=== PATIENT | female | born 1940 | race Caucasian/White ===

== ENCOUNTER 2019-05-31 17:11 | Inpatient (IN) | payer MEDICARE ==
[~2019-05-31] VITALS: Ht 165.1 cm; Wt 113.4 kg
[2019-05-31 18:08] LABS: BASOPHILS # (AUTO) 0.1 (0.0-0.1); BASOPHILS % 0.9 % (0.0-1.0); EOSINOPHILS # (AUTO) 0.2 (0.0-0.4); EOSINOPHILS % 2.3 % (0.0-6.0); HEMATOCRIT 37.6 % (34.2-44.1); HEMOGLOBIN 12.1 g/dL (12.0-16.0); LYMPHOCYTES # (AUTO) 1.8 (1.0-3.2); MEAN CORPUSCULAR HEMOGLOBIN 28.3 pg (28-32); MEAN CORPUSCULAR HGB CONC 32.2 g/dL (31-35); MEAN CORPUSCULAR VOLUME 87.9 fL (81-99); MONOCYTES # (AUTO) 0.8 (0.2-0.8); MONOCYTES % 8.8 % (4.4-11.3); NEUTROPHILS # (AUTO) 5.9 (2.1-6.9); NEUTROPHILS % 66.8 % (38.7-80.0); PLATELET COUNT 330 x10e3/uL (140-360); RED BLOOD COUNT 4.28 x10e6/uL (3.6-5.1); RED CELL DISTRIBUTION WIDTH 15.7 % (11.7-14.4)
[2019-05-31 18:27] LABS: ALANINE AMINOTRANSFERASE 9 IU/L (0-55); ALBUMIN 3.5 g/dL (3.5-5.0); ALKALINE PHOSPHATASE 108 IU/L (40-150); ANION GAP 11.9 mmol/L (8-16); BLOOD UREA NITROGEN 10 mg/dL (7-26); BUN/CREATININE RATIO 16 (6-25); CARBON DIOXIDE 29 mmol/L (22-29); CHLORIDE 100 mmol/L (98-107); CREATININE, SERUM 0.62 mg/dL (0.57-1.11); EST GLOMERULAR FILTRATION RATE > 60 ML/MIN (60-); GLUCOSE 106 mg/dL (74-118); POTASSIUM 3.9 mmol/L (3.5-5.1); SODIUM 137 mmol/L (136-145)
[2019-05-31 18:46] LABS: INR 2.66; PROTHROMBIN TIME 30.4 seconds (11.9-14.5)
[2019-05-31 18:47] LABS: PARTIAL THROMBOPLASTIN TIME 54.1 seconds (23.8-35.5)
[2019-05-31 18:55] LABS: CREATINE KINASE MB 0.9 ng/mL (0-5.0)
[2019-05-31 19:13] LABS: CHOL/HDL RATIO 2.1 (3.0-3.6)
[2019-05-31 19:33] LABS: THYROID STIMULATING HORMONE 2.382 uIU/mL (0.350-4.940)
--- NOTE | 2019-05-31 19:36 | Diagnostic Imaging Report ---
EXAMINATION: CHEST SINGLE (PORTABLE) INDICATION: ^decompensated chf ^[id number] ^1830 COMPARISON: None FINDINGS: AP view TUBES and LINES: None. LUNGS: Lungs are well inflated. Bilateral interstitial edema. Airspace opacity in the right lower lobe may reflect edema or overlying infection. No lobar consolidations. PLEURA: No pleural effusion or pneumothorax. HEART AND MEDIASTINUM: Severe enlargement of the cardiac silhouette due to cardiomegaly and/or superimposed pericardial effusion. Enlarged pulmonary arteries consistent with pulmonary hypertension. Moderate calcifications of the aortic arch. BONES AND SOFT TISSUES: No acute osseous lesion. Soft tissues are unremarkable. UPPER ABDOMEN: No free air under the diaphragm. IMPRESSION: Cardiomegaly with associated bilateral interstitial edema. Cannot exclude pericardial effusion. More conspicuous airspace opacity in the right lower lobe may represent superimposed infection. Continue to follow-up. Signed by: Dr. Gavi Desir M.D. on 05/31/2019 7:33 PM
--- OUTSIDE RECORDS SUMMARY | 2019-05-31 19:43 | XMS REPORT ---
Author [facility] Address Unknown Phone Unavailable Care Team Providers Care Crime Data Specialist Name Role Phone RIZWANA KNUTSON Unavailable Unavailable Payers Payer Name Policy Type Policy Number Effective Date Expiration Date Problems This patient has no known problems. Allergies, Adverse Reactions, Alerts Allergy Name Allergy Type Status Severity Reaction(s) Onset Date Inactive Date Treating Clinician Comments No Known Allergies DA Active U 2013-07-30 00:00:00 Medications This patient has no known medications. Results Test Description Test Time Test Comments Text Results Atomic Results Result Comments CHEST SINGLE (PORTABLE) 2019-05-31 19:32:00 [facility] [address], [place] [address] Patient Name: KALYANI GANT MR #: [id number] : 1940 Age/Sex: 78/F Req #: [id number] Adm Physician: Ordered by: KAIDEN SCHILLING MD Report #: [id number] Location: ER Room/Bed: Procedure: [id number] DX/CHEST SINGLE (PORTABLE) Exam Date: 05/31/19 Exam Time: 1830 REPORT STATUS: Signed EXAMINATION: CHEST SINGLE (PORTABLE) INDIC ATION: decompensated chf [id number] COMPARISON: None FINDINGS: AP view TUBES and LINES: None. LUNGS: Lungs are well inflated. Bilateral interstitial edema. Airspace opacity in the right lower lobe may reflect edema or overlying infection. No lobar consolidations. PLEURA: No pleural effusion or pneumothorax. HEART AND MEDIASTINUM: Severe enlargement of the cardiac silhouette due to cardiomegaly and/or superimposed pericardial effusion. Enlarged pulmonary arteries consistent with pulmonary hypertension. Moderate calcifications of the aortic arch. BONES AND SOFT TISSUES: No acute osseous lesion. Soft tissues are unremarkable. UPPER ABDOMEN: No free air under the diaphragm. IMPRESSION: Cardiomegaly with associated bilateral interstitial edema. Cannot exclude pericardial effusion. More conspicuous airspace opacity in the right lower lobe may represent superimposed infection. Continue to follow-up. Signed by: Dr. Gavi Desir M.D. on 05/31/2019 7:33 PM Dictated By: GAVI DESIR MD 32 Transcribed By: BALA on 05/31/191932 COPY TO: KAIDEN SCHILLING MD PROTHROMBIN TIME 2018-04-13 16:04:00 PROTHROMBIN TIME PATIENT (test code=PTP) 31.1 seconds 9.0-14.0 INTERNATIONAL NORMAL RATIO (test code=INR) 2.5 0.8-1.2 The therapeutic range for oral anticoagulant therapy formost indications is an international normalized ratio (INR)of between 2.0 and 3.0. The recommended therapeutic INRrange for various clinical situations is listed below: Clinical Situation INR range Pulmonary e mbolism treatment (2.0-3.0)Venous thrombosis treatmentVenous thrombosis prophylaxis (high risk surgery)Prevention of systemic embolism from: Acute myocardial infarction Valvular heart disease Atrial fibrillation Mechanical prosthetic heart valves (2.5-3.5) IS PATIENT ON ANTICOAGULANTS? NTHROMBOPLASTIN TIME [id number] 16:04:00* Test Item Value Reference Range Comments THROMBOPLASTIN TIME PARTIAL (test code=PTT) 44.6 seconds 25.0-36.5 IS PATIENT ON ANTICOAGULANTS? NBASIC METABOLIC [id number] 15:52:00* Test Item Value Reference Range Comments SODIUM (test code=NA) 141 mmol/L 136-145 POTASSIUM (test code=K) 3.5 mmol/L 3.5-5.1 CHLORIDE (test code=CL) 109.0 mmol/L 98-107 CARBON DIOXIDE (test code=CO2) 24.0 mmol/L 21-32 ANION GAP (test code=GAP) 11.5 10-20 GLUCOSE (test code=GLU) 100 mg/dL 74-106 BLOOD UREA NITROGEN (test code=BUN) 12 mg/dL 7-18 GLOMERULAR FILTRATION RATE (test code=GFR) > 60 mL/min >=60 Estimated GFR by using Modified MDRD formula.Chronic kidney disease is defined as either kidney damageor GFR <60 mL/min/1.73 m2 for >3 months. CREATININE (test code=CREAT) 0.60 mg/dL 0.55-1.02 Note change in reference range due to change in reagent. BUN/CREATININE RATIO (test code=BUN/CREA) 21.8 10-20 CALCIUM (test code=CA) 8.9 mg/dL 8.5-10.1 BASIC METABOLIC [id number] 15:47:00* Test Item Value Reference Range Comments SODIUM (test code=NA) 141 mmol/L 136-145 POTASSIUM (test code=K) 3.5 mmol/L 3.5-5.1 CHLORIDE (test code=CL) 109.0 mmol/L 98-107 CARBON DIOXIDE (test code=CO2) mmol/L 21-32 ANION GAP (test code=GAP) 10-20 GLUCOSE (test code=GLU) mg/dL 74-106 BLOOD UREA NITROGEN (test code=BUN) mg/dL 7-18 GLOMERULAR FILTRATION RATE (test code=GFR) mL/min >=60 CREATININE (test code=CREAT) mg/dL 0.55-1.02 BUN/CREATININE RATIO (test code=BUN/CREA) 10-20 CALCIUM (test code=CA) 8.9 mg/dL 8.5-10.1 CBC W/O [id number] 15:36:00* Test Item Value Reference Range Comments WHITE BLOOD CELL (test code=WBC) 9.6 K/mm3 4.5-12.5 RED BLOOD CELL (test code=RBC) 4.81 mill/mm3 3.7-5.2 HEMOGLOBIN (test code=HGB) 13.2 gram/dL 11.5-15.5 HEMATOCRIT (test code=HCT) 43.1 % 36.0-46.0 MEAN CELL VOLUME (test code=MCV) 89.6 fL 80-98 MEAN CELL HGB (test code=MCH) 27.4 picogram 27.0-33.0 MEAN CELL HGB CONCETRATION (test code=MCHC) 30.6 gram/dL 33.0-36.0 RED CELL DISTRIBUTION WIDTH (test code=RDW) 15.9 % 11.6-16.2 PLATELET COUNT (test code=PLT) 316 K/mm3 150-450 MEAN PLATELET VOLUME (test code=MPV) 10.5 fL 6.7-11.0 CBC W/O [id number] 15:31:00* Test Item Value Reference Range Comments WHITE BLOOD CELL (test code=WBC) K/mm3 4.5-12.5 RED BLOOD CELL (test code=RBC) mill/mm3 3.7-5.2 HEMOGLOBIN (test code=HGB) 13.2 gram/dL 11.5-15.5 HEMATOCRIT (test code=HCT) 43.1 % 36.0-46.0 MEAN CELL VOLUME (test code=MCV) fL 80-98 MEAN CELL HGB (test code=MCH) picogram 27.0-33.0 MEAN CELL HGB CONCETRATION (test code=MCHC) gram/dL 33.0-36.0 RED CELL DISTRIBUTION WIDTH (test code=RDW) % 11.6-16.2 PLATELET COUNT (test code=PLT) K/mm3 150-450 MEAN PLATELET VOLUME (test code=MPV) fL 6.7-11.0 - XR T-SPINE 3 [id number] 15:02:00 FAX: Raz Nava MD [phone] [place]: [address] St: REG Name: KALYANI DAMIAN [facility] : [birth year] Age/S: 77/F Romel Kathleen [facility] Unit #: [id number] Loc: [place] [address] Phys: Raz Nava MD Acct: [id number] Dis Date: Status: REG ER PHONE #: [phone] Exam Date: 04/13/2018 1306 FAX #: [phone] Reason: BACK PAIN EXAMS: CPT CODE: [id number] XR T-SPINE 3 VIEWS 39114 HISTORY: BACK PAIN, trauma EXAM: AP, lateral, and swimmers views of the thoracic spine. FINDINGS: Mild dextroscoliosis. Vertebral body alignment is satisfactory. Vertebral body heights are preserved. Osteopenia. Moderate multilevel disc space loss with marginal osteophytes. No paraspinal soft tissue contour abnormality. Thoracic aortic vascular calcification. IMPR ESSION: No acute fracture or subluxation of the thoracic spine. Elec tronically Signed by Alicia Navas D.O. on 04/13/2018 at 1502 Reported and signed by: Alicia Navas D.O. CC: Raz Nava MD Technologist: RT KANE(R); Sunshine Mcmullen; ... Trnscrd Date/Time/By: 04/13/2018 (5238) : By: [email or web address] Orig Print D/T: S: 04/13/2018 (0296) PAGE 1 Signed Report - XR FEMUR MIN 2 VWS [id number] 15:02:00 FAX: Raz Nava MD [phone] [place]: St: REG Name: KALYANI DAMIAN [facility] : [birth year] Age/S: 77/F [address] Unit #: [id number] Loc: [place] [address] Phys: Raz Nava MD Acct: [id number] Dis Date: Status: REG ER PHONE #: [phone] Exam Date: 04/13/2018 1400 FAX #: [phone] Reason: THIGH PAIN EXAMS: CPT CODE: [id number] XR FEMUR MIN [address] [place] [address] CLINICAL HISTORY: THIGH PAIN; trauma TECHNIQUE: AP and lateral views of the left femur COMPARISON: None FINDINGS: No acute fracture or dis location. Bony trabecular pattern is unremarkable. No cortical destruction or periosteal reaction. Mild hip and severe degenerative arthrosis. Regio nal soft tissues are unremarkable. IMPRESSION: No acute fracture or dislocation of the left femur. E lectronically Signed by Alicia Navas D.O. on 04/13/2018 at 1502 Reported and signed by: Alicia Navas D.O. CC: Orestes Nava MD Technologist: ANGY GUERRERO, RT(R); Sunshine Mcmullen; ..Ana Trnscrd Date/Time/By: 04/13/2018 (1507) : By: [email or web address] Orig Print D/T: S: 04/13/2018 (0088) PAGE 1 Signed Report - XR L-SPINE 2/3 [id number] 15:01:00 FAX: Raz Nava MD [phone] [place]: St: REG Name: KALYANI DAMIAN [facility] : [birth year] Age/S: 77/F [address] [facility] Unit #: [id number] Loc: [place] [address] Phys: Raz Nava MD Acct: [id number] Dis Date: Status: REG ER PHONE #: [phone] Exam Date: 04/13/2018 1315 FAX #: [phone] Reason: BACK PAIN EXAMS: CPT CODE: [id number] XR L-SPINE 2/3 VIEWS 56653 HISTORY: BACK PAIN, trauma TECHNIQUE: AP, lateral, and lumbosacral views of the lumbar spine. FINDINGS: No acute fracture or subluxation. Vertebral body alignment is satisfactory. Vertebral body heights are preserved. Osteopenia. Severe disc space loss with endplate sclerosis and marginal osteophytes at L4-L5 and L5-S1. Mild disc space loss with marginal osteophytes at other lumbar levels. Lower lumbar facet arthrosis, most notable at L5-S1. No evident paraspinal soft tissue contour abnormality. Abdominal aortic vascular reed cification. IMPRESSION: No acute fracture or subluxation of the lumbar spine. at 150 Reported and signed by: Alicia Navas D.O. CC: Raz Nava MD Technologist: ANGY GUERRERO, RT(R); Sunshine Mcmullen; ..Ana Trnscrd Date/Time/By: 04/13/2018 (8055) : By: [email or web address] Orig Print D/T: S: 04/13/2018 (0504) PAGE 1 Signed Report - XR KNEE 3 V [id number] 15:00:00 FAX: Raz Nava MD [phone] [place]: [address]: REG Name: KALYANI DAMIAN [facility] : [birth year] Age/S: 77/F [address] Unit #: [id number] Loc: [place], [place] [address] Phys: Raz Nava MD Acct: [id number] Dis Date: Status: [facility] ER PHONE #: [phone] Exam Date: 04/13/2018 1420 FAX #: [phone] Reason: KNEE PAIN EXAMS: CPT CODE: [id number] XR KNEE 3 [place] [address] CLINICAL HISTORY: KNEE PAIN; trauma TECHNIQUE: AP, oblique, and lateral views of the bilateral knees COMPARISON: None FINDINGS: No acute f racture or dislocation. Bony trabecular pattern is unremarkable. No cortic al destruction or periosteal reaction. Severe bilateral knee degenerative arthrosis. No joint effusion. Regional soft tissues are unremarkable. IMPRESSION: No acute fracture or dislocati on of the bilateral knees. Electronically Signed by Alicia ann 04/13/2018 at 1500 Reported and signed by: Alicia Hanna CC: Raz Nava MD Technologist: ANGY GUERRERO, RT(R); Sunshine Mcmullen; ... Trnscrd Date/Time/By: 04/13/2018 (1500) : By: [email or web address] Orig Print D/T: S: 04/13/2018 (1500) PAGE 1 Signed R eport - XR FEMUR MIN 2 VWS [id number] 15:00:00 FAX: Raz Nava MD [phone] [place]: St: DEP Name: KALYANI DAMIAN [facility] : [birth year] Age/S: 77/F [address] Unit #: [id number] Loc: [place] [address] Phys: Raz Nava MD Acct: [id number] Dis Date: Status: DEP ER PHONE #: [phone] Exam Date: 04/13/2018 1410 FAX #: [phone] Reason: THIGH PAIN EXAMS: CPT CODE: [id number] XR FEMUR MIN [address] [place] [address] CLINICAL HISTORY: THIGH PAIN; trauma TECHNIQUE: AP and lateral views of the right femur COMPARISON: None FINDINGS: No acute fracture or di slocation. Bony trabecular pattern is unremarkable. No cortical destructio n or periosteal reaction. Mild hip and severe degenerative arthrosis. Kirsty onal soft tissues are unremarkable. IMPRESSION: No acute fracture or dislocation of the right femur. at 1500 Reported and signed by: Alicia Navas D.O. CC: Paul Nava MD Technologist: ANGY CHAPIN, RT(R); Sunshine Mcmullen; ... Trnscrd Date/Time/By: 04/13/2018 (1500) : [place] y: [email or web address] Orig Print D/T: S: 04/14/2018 (0805) PAGE 1 Signed Report - XR TIBIA/FIBULA 2 V [id number] 14:58:00 FAX: Raz Nava MD [phone] [place]: St: REG Name: Gr[place]a KALYANI BERNARDO AMADO [facility] : [birth year] Age/S: 77/F [address] Unit #: [id number] Loc: [place] [address] Phys: Raz Nava MD Acct: [id number] Dis Date: Status: REG ER PHONE #: [phone] Exam Date: 04/13/2018 1430 FAX #: [phone] Reason: LEG PAIN EXAMS: CPT CODE: [id number] XR TIBIA/FIBULA 2 [place] [address] CLINICAL HISTORY: LEG PAIN; trauma TECHNIQUE: AP and lateral views of the bilateral tibia/fibula COMPARISON: None FINDINGS: No acute fracture or dislocation. Bony trabecular pattern is unremarkable. No cortical d estruction or periosteal reaction. Degenerative changes of the bilateral k nees and ankles. Regional soft tissues are unremarkable. IMPRESSION: No acute fracture or dislocation of the jack ateral tibia/fibula. Electronically Signed by Alicia Navas D.O. on at 1454 Reported and signed by: Alicia Navas D.O. CC: Raz Nava MD Technologist: ANGY GUERRERO, (R); Sunshine Mcmullen; ... Trnscrd Da te/Time/By: 04/13/2018 (5257) : By: [email or web address] Orig Print D/T: S: 04/13 (4511) PAGE 1 Signed Report - CT C-SPINE W/O [id number] 13:33:00 Name: KALYANI GANT [facility] : 1940 Age/S: 77 / F [address] [facility] Unit #: [id number] Loc: [place] [address] Phys: Orestes Nava MD Acct: [id number] Di s Date: Status: REG ER PHONE #: Exam Date: 04/13/2018 1305 FAX #: Reason: Neck Pain EXAMS: CPT CODE: [id number] CT C-SPINE W/O CONTRAST 45479 HISTORY: Fall and the neck pain. COMPARISON: July 30, 2013. CT brain without c ontrast: Automated exposure control. No acute fracture of the cerv ical spine. DJD. Posterior marginal disc osteophytes and facet hypertrophy at multiple levels resulting in mild to moderate canal and foraminal sten osis. Especially at C4-C5 and C5-C6 levels. Correlate with radicular sympt oms. Thyroid glands are within normal the mediastinum is normal. L chaitanya apices are clear. Dependent changes on the right. Anatom ic alignment. Vertebral body heights are maintained. Narrowed disc spaces at C3-4 C5 level. Uncovertebral joints are preserved. IMPRESSION : No acute fracture. Anatomic alignment. DJD. Elec tronically Signed by Salma Mar on 04/13/2018 at 1333 Reported and signed by: Willy Mar M.D. CC: Orestes Nava MD Technologist:Ileana Dowling(R),CT CTDI: DLP: Trnscb Date/Time: 04/13/2018 (9353) t.SDR. 4 Orig Print D/T: S: 04/13/2018 (3048) CTDI: DLP: PAGE 1 Signed Report - CT HEAD/BRAIN W/O [id number] 13:29:00 Name: KALYANI GANT [facility] : 1940 Age/S: 77 / F [address] [facility] Unit #: [id number] Loc: [place] [address] Phys: Raz Nava MD Acct: [id number] Dis Date: Status: REG ER PHONE #: [phone] Exam Date: 04/13/2018 1305 FAX #: [phone] Reason: HEADACHE EXAMS: CPT CODE: [id number] CT HEAD/BRAIN W/O CONT 66436 HISTORY: Headache. COMPARISON: July 30, 2013. CT brain without contrast: Automated exposure control. No acute intracranial bleeds or extra-axial collections are noted. No acute territorial vascular infarction is noted. The sulci, gyri, ventricles and subarachnoid spaces and the basilar cisterns are normal for patient's age. No herniation or hydrocephalus or midline shift is noted. Mild periventricular ischemic gliosis is noted. Age- appropriate atrophy is noted as well. Portions of the visualized paranasal sinuses are normal. No obvious bony calvarial defect is noted. Partial right mastoidectomy. IMPRESSION: No acute intracranial bleeds or extra-axial collections. No acute territorial vascular infarction. No herniation or hydrocephalus or midline shift. Chronic white matter ischemic disease and atrophy . El ectronically Signed by Salma Mar on 04/13/2018 at 1329 Reported and signed by: Willy Mar M.D. CC: Raz Nava MD Technologist:Ileana Barrera RT(R),CT CTDI: DLP: Trnscb Date/Time: 04/13/2018 (1329) [email or web address] Orig Print D/T: S: 04/13/2018 (3957) CTDI: DLP: PAGE 1 Signed Report
[2019-05-31 20:00] VITALS: BP 156/64
[2019-05-31] MEDS ORDERED: SODIUM CHLORIDE FLUSH 10 ML SYR INJ PRN (20:00)
[2019-05-31 20:20] VITALS: BP_SYST 120; BP_SYST 156; BP_DIAS 64; BP_DIAS 92
[2019-05-31] MEDS ORDERED: LOSARTAN POTASS50 MG PO (20:59)
[2019-05-31] MEDS ORDERED: PRAVASTATIN SOD80 MG PO (20:59)
[2019-05-31] MEDS ORDERED: PANTOPRAZOLE SO40 MG PO (20:59)
[2019-05-31] MEDS ORDERED: WARFARIN SODIUM4 MG PO (20:59)
[2019-05-31] MEDS ORDERED: ISOSORBIDE MONO30 MG PO (20:59)
[2019-05-31] MEDS ORDERED: METOCLOPRAMIDE10 MG PO (20:59)
[2019-05-31] MEDS ORDERED: SPIRONOLACTONE50 MG PO (20:59)
[2019-05-31] MEDS ORDERED: CEPHALEXIN500 MG PO (20:59)
[2019-05-31] MEDS ORDERED: WARFARIN SODIUM5 MG PO (20:59)
[2019-05-31] MEDS ORDERED: TORSEMIDE10 MG PO (20:59)
[2019-05-31] MEDS ORDERED: LEVOCETIRIZINE D5 MG PO (20:59)
[2019-05-31] MEDS ORDERED: LEVOTHYROXINE100 MCG PO (20:59)
[2019-05-31] MEDS ORDERED: DULOXETINE HCL30 MG PO (20:59)
[2019-05-31] MEDS ORDERED: LEVOTHYROXINE SODIUM 100 MCG TAB PO ONE (21:00)
[2019-05-31] MEDS ORDERED: SODIUM CHLORIDE 0.9% 250ML 250 ML ONE (21:37)
[2019-05-31] MEDS: ACETAMINOPHEN/CODEINE 300MG - 30MG TAB PO PRN (22:00)
[2019-05-31] MEDS: FUROSEMIDE INJ 10 MG/ML 4 ML VIAL IV SCH (22:03)
[2019-05-31] MEDS: CEFTRIAXONE SOD 1 GM/NS 50 ML 50 ML IV SCH (22:03)
[2019-05-31] MEDS: PRAVASTATIN 20 MG TAB PO SCH (22:03)
[2019-05-31 22:17] LABS: BILIRUBIN,URINE NEGATIVE (NEGATIVE); CLARITY,URINE CLEAR (CLEAR); COLOR,URINE YELLOW (YELLOW); KETONES,URINE NEGATIVE (NEGATIVE); LEUKOCYTE ESTERASE ,URINE NEGATIVE (NEGATIVE); NITRITE,URINE NEGATIVE (NEGATIVE); PROTEIN,URINE DIPSTICK NEGATIVE (NEGATIVE); URINE UROBILINOGEN 1 mg/dL (0.2 - 1)
[2019-05-31 22:24] LABS: BACTERIA,URINE MODERATE /HPF; EPITHELIAL CELLS,URINE MODERATE /LPF; HYALINE CASTS 0-1 (0-1); RBC,URINE 0-5 /HPF (0-5)
[2019-06-01] VITALS: BP 134/61
[2019-06-01 04:00] VITALS: BP 158/65
[2019-06-01] MEDS: ACETAMINOPHEN/CODEINE 300MG - 30MG TAB PO PRN ×2 (04:54→15:01)
[2019-06-01] MEDS: LEVOTHYROXINE SODIUM 100 MCG TAB PO SCH (04:54)
[2019-06-01 05:33] LABS: BASOPHILS # (AUTO) 0.1 (0.0-0.1); BASOPHILS % 0.7 % (0.0-1.0); EOSINOPHILS # (AUTO) 0.2 (0.0-0.4); EOSINOPHILS % 1.9 % (0.0-6.0); HEMATOCRIT 36.6 % (34.2-44.1); HEMOGLOBIN 11.7 g/dL (12.0-16.0); LYMPHOCYTES # (AUTO) 2.2 (1.0-3.2); LYMPHOCYTES % 26.2 % (18.0-39.1); MEAN CORPUSCULAR HEMOGLOBIN 28.3 pg (28-32); MEAN CORPUSCULAR VOLUME 88.6 fL (81-99); MONOCYTES # (AUTO) 0.9 (0.2-0.8); MONOCYTES % 10.5 % (4.4-11.3); NEUTROPHILS # (AUTO) 5.2 (2.1-6.9); NEUTROPHILS % 60.5 % (38.7-80.0); PLATELET COUNT 287 x10e3/uL (140-360); RED BLOOD COUNT 4.13 x10e6/uL (3.6-5.1); RED CELL DISTRIBUTION WIDTH 15.6 % (11.7-14.4)
[2019-06-01 05:44] LABS: INR 2.34; PROTHROMBIN TIME 27.4 seconds (11.9-14.5)
[2019-06-01 05:45] LABS: PARTIAL THROMBOPLASTIN TIME 48.3 seconds (23.8-35.5)
[2019-06-01 05:54] LABS: CREATINE KINASE 68 IU/L (29-168)
[2019-06-01 06:32] LABS: ALANINE AMINOTRANSFERASE 7 IU/L (0-55); ALBUMIN 3.4 g/dL (3.5-5.0); ALBUMIN/GLOBULIN RATIO 1.1 (0.8-2.0); ALKALINE PHOSPHATASE 108 IU/L (40-150); ANION GAP 11.4 mmol/L (8-16); BLOOD UREA NITROGEN 8 mg/dL (7-26); BUN/CREATININE RATIO 14 (6-25); CALCIUM 8.9 mg/dL (8.4-10.2); CARBON DIOXIDE 29 mmol/L (22-29); CHLORIDE 101 mmol/L (98-107); CREATININE, SERUM 0.58 mg/dL (0.57-1.11); EST GLOMERULAR FILTRATION RATE > 60 ML/MIN (60-); GLUCOSE 97 mg/dL (74-118); POTASSIUM 3.4 mmol/L (3.5-5.1); SODIUM 138 mmol/L (136-145)
[2019-06-01 08:15] VITALS: BP 152/71
[2019-06-01] MEDS: FUROSEMIDE INJ 10 MG/ML 4 ML VIAL IV SCH ×2 (09:00→20:45)
[2019-06-01] MEDS: ISOSORBIDE MONONITRATE 30 MG TAB CR PO SCH (09:00)
[2019-06-01] MEDS: MUPIROCIN 2% OINT 22 GM TUBE TOP SCH ×2 (09:00→17:00)
[2019-06-01] MEDS: CEFTRIAXONE SOD 1 GM/NS 50 ML 50 ML IV SCH ×2 (09:00→20:45)
[2019-06-01] MEDS: SPIRONOLACTONE 25 MG TAB PO SCH (09:00)
[2019-06-01] MEDS: LOSARTAN POTASSIUM 100 MG TAB PO SCH (09:00)
[2019-06-01] MEDS ORDERED: DULOXETINE HCL 30 MG DELAYED RELEASE PO SCH (09:00)
--- NOTE | 2019-06-01 10:40 | NUR ---
Pt unavailable at this time. Will follow up as able. DOMENICO HUDSON [employer] Manager Spiritual Care Department O: [phone]
[2019-06-01 12:01] VITALS: BP 135/69
[2019-06-01] MEDS ORDERED: POTASSIUM CHLORIDE 10MEQ EA PO ONE (12:10)
[2019-06-01 14:12] LABS: CREATINE KINASE MB 1.5 ng/mL (0-5.0)
[2019-06-01 16:18] VITALS: BP 115/59
[2019-06-01] MEDS: WARFARIN SOD 2 MG TAB PO SCH (16:57)
--- NOTE | 2019-06-01 19:44 | NUR ---
walking rounds complete. report handed to oncoming nurse.
--- NOTE | 2019-06-01 19:47 | NUR ---
Patient received lying in bed. AAO x 4. No acute distress noted. Call light within reach.
[2019-06-01] MEDS: PRAVASTATIN 20 MG TAB PO SCH (20:45)
[2019-06-01] MEDS ORDERED: SIMVASTATIN 40 MG TAB PO SCH (21:00)
[2019-06-02] VITALS (9 sets, daily range): BP systolic 110–128; BP diastolic 53–76
[2019-06-02] MEDS: LEVOTHYROXINE SODIUM 100 MCG TAB PO SCH (05:55)
[2019-06-02 06:04] LABS: BASOPHILS # (AUTO) 0.1 (0.0-0.1); BASOPHILS % 0.8 % (0.0-1.0); EOSINOPHILS # (AUTO) 0.2 (0.0-0.4); EOSINOPHILS % 2.6 % (0.0-6.0); HEMATOCRIT 33.1 % (34.2-44.1); HEMOGLOBIN 10.7 g/dL (12.0-16.0); LYMPHOCYTES # (AUTO) 2.1 (1.0-3.2); LYMPHOCYTES % 26.8 % (18.0-39.1); MEAN CORPUSCULAR HEMOGLOBIN 28.6 pg (28-32); MEAN CORPUSCULAR HGB CONC 32.3 g/dL (31-35); MEAN CORPUSCULAR VOLUME 88.5 fL (81-99); MONOCYTES # (AUTO) 0.8 (0.2-0.8); MONOCYTES % 10.1 % (4.4-11.3); NEUTROPHILS # (AUTO) 4.7 (2.1-6.9); NEUTROPHILS % 59.3 % (38.7-80.0); PLATELET COUNT 293 x10e3/uL (140-360); RED BLOOD COUNT 3.74 x10e6/uL (3.6-5.1); RED CELL DISTRIBUTION WIDTH 15.6 % (11.7-14.4)
[2019-06-02 06:07] LABS: INR 2.27; PROTHROMBIN TIME 26.7 seconds (11.9-14.5)
[2019-06-02 06:19] LABS: ALANINE AMINOTRANSFERASE 7 IU/L (0-55); ALKALINE PHOSPHATASE 92 IU/L (40-150); ANION GAP 13.4 mmol/L (8-16); BLOOD UREA NITROGEN 11 mg/dL (7-26); BUN/CREATININE RATIO 18 (6-25); CALCIUM 8.7 mg/dL (8.4-10.2); CARBON DIOXIDE 31 mmol/L (22-29); CHLORIDE 100 mmol/L (98-107); CREATININE, SERUM 0.62 mg/dL (0.57-1.11); EST GLOMERULAR FILTRATION RATE > 60 ML/MIN (60-); GLUCOSE 95 mg/dL (74-118); POTASSIUM 4.4 mmol/L (3.5-5.1); SODIUM 140 mmol/L (136-145)
[2019-06-02] MEDS ORDERED: ISOSORBIDE MONONITRATE 30 MG TAB CR PO SCH (09:00)
[2019-06-02] MEDS: LOSARTAN POTASSIUM 100 MG TAB PO SCH (09:00)
[2019-06-02] MEDS: CEFTRIAXONE SOD 1 GM/NS 50 ML 50 ML IV SCH ×2 (09:03→21:50)
[2019-06-02] MEDS: FUROSEMIDE INJ 10 MG/ML 4 ML VIAL IV SCH ×2 (09:10→21:50)
[2019-06-02] MEDS: SPIRONOLACTONE 25 MG TAB PO SCH (09:10)
[2019-06-02] MEDS: DULOXETINE HCL 30 MG DELAYED RELEASE PO SCH (09:11)
[2019-06-02] MEDS: ISOSORBIDE MONONITRATE 30 MG TAB CR PO SCH (09:11)
[2019-06-02] MEDS: PANTOPRAZOLE SOD 40 MG TABEC PO SCH (09:11)
[2019-06-02] MEDS: MUPIROCIN 2% OINT 22 GM TUBE TOP SCH ×2 (09:14→16:06)
[2019-06-02] MEDS: WARFARIN SOD 2 MG TAB PO SCH (16:07)
--- NOTE | 2019-06-02 16:16 | NUR ---
Nutrition Screen Note RD Recommendation for Physician: -Continue cardiac diet Plan of Care: RD following, monitoring for tolerance and adequacy Nutrition reason for involvement: Diagnosis - CHF Primary Diagnose(s): decompensated CHF, cellulitis PMH: HTN, COPD, CHF, lymphadema, afib, hypothyroid Ht: 65 in Wt:250 lb BMI: 41.6 kg/m2 IBW:[address] Assessment: (06/02/19) Chart reviewed. Labs and meds reviewed. Pt is a 78 year old female admitted with decompensated CHF. Pt reports a good appetite and is eating all of her meals. No weight loss reported and pt mentioned she usually weighs 250 lbs. No N/V/D/C or chewing/swallowing issues. Will continue to monitor. Current Diet: cardiac diet Malnutrition Evaluation (06/02/19) The patient does not meet criteria for a specified degree of malnutrition at this time. Will re-evaluate at follow-up as appropriate. Diet Education Needs Assessment: Pt declined diet education materials and stated she was familiar with following a cardiac diet Nutrition Care Level: low Signed: Yolanda Acosta, RD, LD
[2019-06-02] MEDS: PRAVASTATIN 20 MG TAB PO SCH (21:50)
[2019-06-03] VITALS (9 sets, daily range): BP systolic 111–133; BP diastolic 55–97
[2019-06-03] MEDS: ACETAMINOPHEN/CODEINE 300MG - 30MG TAB PO PRN ×3 (01:40→19:50)
[2019-06-03] MEDS: LEVOTHYROXINE SODIUM 100 MCG TAB PO SCH (05:40)
[2019-06-03 06:01] LABS: INR 1.95; PROTHROMBIN TIME 23.6 seconds (11.9-14.5)
[2019-06-03 06:06] LABS: ANION GAP 13.8 mmol/L (8-16); BLOOD UREA NITROGEN 8 mg/dL (7-26); BUN/CREATININE RATIO 14 (6-25); CALCIUM 8.9 mg/dL (8.4-10.2); CARBON DIOXIDE 29 mmol/L (22-29); CHLORIDE 99 mmol/L (98-107); CREATININE, SERUM 0.58 mg/dL (0.57-1.11); EST GLOMERULAR FILTRATION RATE > 60 ML/MIN (60-); GLUCOSE 101 mg/dL (74-118); POTASSIUM 3.8 mmol/L (3.5-5.1); SODIUM 138 mmol/L (136-145)
[2019-06-03] MEDS: FUROSEMIDE INJ 10 MG/ML 4 ML VIAL IV SCH ×2 (08:24→21:40)
[2019-06-03] MEDS: CEFTRIAXONE SOD 1 GM/NS 50 ML 50 ML IV SCH ×2 (08:24→21:40)
[2019-06-03] MEDS: DULOXETINE HCL 30 MG DELAYED RELEASE PO SCH (08:25)
[2019-06-03] MEDS: SPIRONOLACTONE 25 MG TAB PO SCH (08:25)
[2019-06-03] MEDS: LOSARTAN POTASSIUM 100 MG TAB PO SCH (08:25)
[2019-06-03] MEDS: ISOSORBIDE MONONITRATE 30 MG TAB CR PO SCH (08:26)
[2019-06-03] MEDS: PANTOPRAZOLE SOD 40 MG TABEC PO SCH (08:26)
[2019-06-03] MEDS: MUPIROCIN 2% OINT 22 GM TUBE TOP SCH ×2 (09:52→17:07)
[2019-06-03] MEDS: WARFARIN SOD 2 MG TAB PO SCH (17:07)
--- NOTE | 2019-06-03 19:23 | NUR ---
Patient received sitting up in be. AAO x 4. No complaints of pain. No signs of respiratory distress. Rivera light within reach.
[2019-06-03] MEDS: PRAVASTATIN 20 MG TAB PO SCH (21:40)
[2019-06-04] VITALS (8 sets, daily range): BP systolic 109–151; BP diastolic 56–77
[2019-06-04] MEDS: ACETAMINOPHEN/CODEINE 300MG - 30MG TAB PO PRN ×2 (04:27→11:15)
[2019-06-04 05:32] LABS: INR 1.92; PROTHROMBIN TIME 23.4 seconds (11.9-14.5)
[2019-06-04 05:40] LABS: ANION GAP 11.6 mmol/L (8-16); BLOOD UREA NITROGEN 9 mg/dL (7-26); BUN/CREATININE RATIO 15 (6-25); CALCIUM 8.9 mg/dL (8.4-10.2); CARBON DIOXIDE 30 mmol/L (22-29); CHLORIDE 99 mmol/L (98-107); CREATININE, SERUM 0.61 mg/dL (0.57-1.11); EST GLOMERULAR FILTRATION RATE > 60 ML/MIN (60-); GLUCOSE 101 mg/dL (74-118); POTASSIUM 3.6 mmol/L (3.5-5.1); SODIUM 137 mmol/L (136-145)
[2019-06-04] MEDS: LEVOTHYROXINE SODIUM 100 MCG TAB PO SCH (06:00)
--- NOTE | 2019-06-04 07:00 | NUR ---
Patient resting comfortably. Bed-side report given to oncoming nurse.
[2019-06-04] MEDS: SPIRONOLACTONE 25 MG TAB PO SCH (09:36)
[2019-06-04] MEDS: FUROSEMIDE INJ 10 MG/ML 4 ML VIAL IV SCH ×2 (09:36→21:00)
[2019-06-04] MEDS: LOSARTAN POTASSIUM 100 MG TAB PO SCH (09:36)
[2019-06-04] MEDS: ISOSORBIDE MONONITRATE 30 MG TAB CR PO SCH (09:37)
[2019-06-04] MEDS: MUPIROCIN 2% OINT 22 GM TUBE TOP SCH ×2 (09:37→16:50)
[2019-06-04] MEDS: PANTOPRAZOLE SOD 40 MG TABEC PO SCH (09:37)
[2019-06-04] MEDS: DULOXETINE HCL 30 MG DELAYED RELEASE PO SCH (09:37)
[2019-06-04] MEDS: CEFTRIAXONE SOD 1 GM/NS 50 ML 50 ML IV SCH ×2 (10:49→21:00)
[2019-06-04] MEDS: WARFARIN SOD 2 MG TAB PO SCH (16:50)
--- NOTE | 2019-06-04 18:57 | NUR ---
Report given to oncoming nurse of patient's status. Resting in bed. No s/s of acute distress noted. Side rails upx2, call light within reach.
--- NOTE | 2019-06-04 19:24 | NUR ---
Patient received sitting up in bed. AAO x 4. No acute distress noted. Safety measures in place. Call light within reach.
[2019-06-04] MEDS: PRAVASTATIN 20 MG TAB PO SCH (21:00)
[2019-06-05] VITALS (8 sets, daily range): BP systolic 112–141; BP diastolic 54–80
[2019-06-05] MEDS: ACETAMINOPHEN/CODEINE 300MG - 30MG TAB PO PRN (01:19)
--- NOTE | 2019-06-05 02:20 | NUR ---
IV on right arm infiltrated. Old IV removed with tip intact. New IV inserted in right hand 22G. Patient tolerated well.
[2019-06-05] MEDS: LEVOTHYROXINE SODIUM 100 MCG TAB PO SCH (06:00)
[2019-06-05 06:26] LABS: PROTHROMBIN TIME 24.1 seconds (11.9-14.5)
--- NOTE | 2019-06-05 07:00 | NUR ---
Patient resting comfortably, Walking rounds done. Shift report given to oncoming nurse regarding patient's status.
[2019-06-05] MEDS: MUPIROCIN 2% OINT 22 GM TUBE TOP SCH ×3 (09:00→16:56)
[2019-06-05] MEDS: FUROSEMIDE INJ 10 MG/ML 4 ML VIAL IV SCH ×2 (09:44→21:50)
[2019-06-05] MEDS: SPIRONOLACTONE 25 MG TAB PO SCH (09:45)
[2019-06-05] MEDS: ISOSORBIDE MONONITRATE 30 MG TAB CR PO SCH (09:45)
[2019-06-05] MEDS: PANTOPRAZOLE SOD 40 MG TABEC PO SCH (09:45)
[2019-06-05] MEDS: LOSARTAN POTASSIUM 100 MG TAB PO SCH (09:45)
[2019-06-05] MEDS: CEFTRIAXONE SOD 1 GM/NS 50 ML 50 ML IV SCH ×2 (09:45→21:50)
[2019-06-05] MEDS: DULOXETINE HCL 30 MG DELAYED RELEASE PO SCH (09:45)
[2019-06-05] MEDS: WARFARIN SOD 2 MG TAB PO SCH (17:04)
--- NOTE | 2019-06-05 18:25 | Progress Note ---
DATE: 06/05/2019 Medicine Progress Note I am covering for Dr. Sd Sullivan. SUBJECTIVE: The patient was admitted for underlying lower extremity cellulitis . The patient is currently doing well with no complaints. No overnight events. PHYSICAL EXAMINATION: VITAL SIGNS: Temperature is 97.6, pulse 79, respiratory rate is 20, blood pressure , pulse ox 96% on room air. GENERAL: No acute distress. Alert and oriented x3. Cooperative on examination. HEENT: Head is normocephalic and atraumatic. Eyes; pupils are equal, round, and reactive to light bilaterally. Extraocular movements intact bilaterally. Throat; no evidence of erythema or exudates in the posterior pharynx. She has poor dentition. NECK: Supple. Good range of motion. PULMONARY: Clear to auscultation bilaterally. No wheezing, rales, or rhonchi. No crackles appreciated. CARDIOVASCULAR: Positive S1 and S2. No murmurs, rubs, or gallops appreciated. ABDOMEN: Soft, nondistended, and nontender to palpation. Bowel sounds are present. MUSCULOSKELETAL: Strength is 5/5 throughout. No evidence of any muscle deficits on examination. No weakness appreciated. NEUROLOGIC: Cranial nerves 2 through 12 grossly intact. No evidence of any neurological deficits on exam. SKIN: Intact. She does have left lower extremity cellulitis, but seems to be improving, more pink in nature, not as warm to touch. EXTREMITIES: No edema. Good range of motion throughout. LABORATORY DATA: Labs show white count 7.8, hemoglobin platelets of 293. Coagulation, INR 2. Chemistry; sodium 137, potassium 3.6, chloride 99, bicarb 30, anion gap of 11, BUN is 9, creatinine is 0.61, glucose is 101, calcium is 8.9. LFTs within normal range. Troponins were all negative. Albumin was 3. TSH is 2.3. Urinalysis was negative. MICROBIOLOGY: Urine culture was found to be mixed melisa contamination. IMAGING STUDIES: Chest x-ray on 05/31/2019 shows cardiomegaly with associated bilateral interstitial edema. IMPRESSION: 1. Left lower extremity cellulitis. 2. Acute exacerbation of congestive heart failure. 3. Chronic lymphedema. 4. Atrial fibrillation. 5. Morbid obesity. PLAN: At this time, continue with IV antibiotics for her cellulitis. Continue with diuretics and cardioprotective medications for her CHF. She is also on Aldactone. Continue with warfarin for history of atrial fibrillation. Get INR and labs in the morning. Encourage ambulation. Once again, I am covering for Dr. Sd Sullivan. MD IRENE Lind/MODL /[id number]
--- NOTE | 2019-06-05 21:47 | NUR ---
Patient complained of itching to bilateral legs. Patient's legs washed. Bactroban ointment applied. Patient stated she felt relieved and does not want legs wrapped with Matty bandage.
[2019-06-05] MEDS: PRAVASTATIN 20 MG TAB PO SCH (21:50)
[2019-06-06] VITALS (8 sets, daily range): BP systolic 111–138; BP diastolic 56–75
[2019-06-06] MEDS: ACETAMINOPHEN/CODEINE 300MG - 30MG TAB PO PRN (02:58)
[2019-06-06] MEDS: LEVOTHYROXINE SODIUM 100 MCG TAB PO SCH (06:20)
[2019-06-06 06:32] LABS: BASOPHILS # (AUTO) 0.1 (0.0-0.1); BASOPHILS % 0.9 % (0.0-1.0); EOSINOPHILS # (AUTO) 0.2 (0.0-0.4); HEMOGLOBIN 11.5 g/dL (12.0-16.0); LYMPHOCYTES # (AUTO) 2.3 (1.0-3.2); LYMPHOCYTES % 28.3 % (18.0-39.1); MEAN CORPUSCULAR HEMOGLOBIN 28.3 pg (28-32); MEAN CORPUSCULAR HGB CONC 31.9 g/dL (31-35); MEAN CORPUSCULAR VOLUME 88.5 fL (81-99); MONOCYTES # (AUTO) 0.8 (0.2-0.8); MONOCYTES % 9.8 % (4.4-11.3); NEUTROPHILS # (AUTO) 4.6 (2.1-6.9); NEUTROPHILS % 57.9 % (38.7-80.0); PLATELET COUNT 316 x10e3/uL (140-360); RED BLOOD COUNT 4.07 x10e6/uL (3.6-5.1); RED CELL DISTRIBUTION WIDTH 15.6 % (11.7-14.4)
[2019-06-06 06:51] LABS: INR 1.93; PROTHROMBIN TIME 23.5 seconds (11.9-14.5)
--- NOTE | 2019-06-06 06:54 | NUR ---
Shift report given to oncoming nurse regarding patient's status. Patient in stable condition.
[2019-06-06 07:09] LABS: ANION GAP 13.3 mmol/L (8-16); BLOOD UREA NITROGEN 10 mg/dL (7-26); BUN/CREATININE RATIO 18 (6-25); CALCIUM 8.8 mg/dL (8.4-10.2); CARBON DIOXIDE 30 mmol/L (22-29); CHLORIDE 98 mmol/L (98-107); CREATININE, SERUM 0.56 mg/dL (0.57-1.11); EST GLOMERULAR FILTRATION RATE > 60 ML/MIN (60-); GLUCOSE 90 mg/dL (74-118); POTASSIUM 3.3 mmol/L (3.5-5.1); SODIUM 138 mmol/L (136-145)
[2019-06-06] MEDS: CEFTRIAXONE SOD 1 GM/NS 50 ML 50 ML IV SCH ×3 (08:34→21:00)
[2019-06-06] MEDS: ISOSORBIDE MONONITRATE 30 MG TAB CR PO SCH (08:34)
[2019-06-06] MEDS: FUROSEMIDE INJ 10 MG/ML 4 ML VIAL IV SCH ×3 (08:34→21:00)
[2019-06-06] MEDS: PANTOPRAZOLE SOD 40 MG TABEC PO SCH (08:34)
[2019-06-06] MEDS: DULOXETINE HCL 30 MG DELAYED RELEASE PO SCH (08:34)
[2019-06-06] MEDS: SPIRONOLACTONE 25 MG TAB PO SCH (08:34)
[2019-06-06] MEDS: MUPIROCIN 2% OINT 22 GM TUBE TOP SCH ×2 (08:34→16:05)
[2019-06-06] MEDS: LOSARTAN POTASSIUM 100 MG TAB PO SCH (08:34)
[2019-06-06] MEDS ORDERED: MECLIZINE HCL 12.5 MG TAB PO PRN (15:00)
[2019-06-06] MEDS ORDERED: POTASSIUM CHLORIDE 20 MEQ TAB CR PO ONE (15:30)
[2019-06-06] MEDS: WARFARIN SOD 2 MG TAB PO SCH (16:04)
--- NOTE | 2019-06-06 18:37 | Progress Note ---
DATE: Medicine Progress Note SUBJECTIVE: The patient reports this morning she was dizzy, but when I evaluated her, her dizziness was gone. No overnight events. PHYSICAL EXAMINATION: VITAL SIGNS: Temperature 96.1, pulse 64, respiratory rate is 18, blood pressure 132/62, and pulse ox 98% on room air. GENERAL: In no acute distress, alert and oriented x3. Cooperative on examination. HEENT: Head is normocephalic, atraumatic. Eyes; pupils are equal, round, and reactive to light bilaterally. Extraocular movements are intact bilaterally. Throat, no evidence of erythema or exudates in the posterior pharynx. Has poor dentition NECK: Supple. PULMONARY: Clear to auscultation bilaterally. No wheezing, rales, or rhonchi. No crackles appreciated. CARDIOVASCULAR: Positive S1, S2. No murmurs, rubs, or gallops appreciated. ABDOMEN: Soft, nondistended, and nontender to palpation. Bowel sounds present. MUSCULOSKELETAL: Strength is 5/5 throughout. No evidence of any muscle deficits on examination. NEUROLOGIC: Cranial nerves II through XII are grossly intact. No evidence of any neurological deficits on exam. SKIN: Intact. Warm to touch. Good cap refill. PSYCHIATRIC: Normal affect and mood. EXTREMITIES: No edema. Good range of motion throughout. LABORATORY FINDINGS: Show white count 7.9, hemoglobin 11.5, hematocrit 36, and platelets of 316. Coagulation; PT 23 and INR 1.9. Chemistry, sodium 138, potassium 3.3, chloride 98, bicarb 30, anion gap of 13, BUN 10, creatinine is 0.56, and calcium is 8.8. Urinalysis negative. Microbiology none. IMAGING STUDIES: None. IMPRESSION: 1. Left lower extremity cellulitis. 2. Acute exacerbation of congestive heart failure. 3. Chronic lymphedema. 4. Atrial fibrillation. 5. Morbid obesity. 6. Dizziness - resolved. PLAN: At this time, continue with IV antibiotics for her cellulitis. She is on diuretics, cardioprotective meds for underlying CHF. She is also on Aldactone. Her INR is in the normal range. She is on for underlying atrial fibrillation. Get morning labs including INR, CBC, and BMP. I did order p.r.n. meclizine if she gets any kind of dizziness. Replace potassium. I am covering for Dr. Star Sullivan, which will be available in the morning. MD IRENE Lind/MICHELLE /[id number]
[2019-06-06] MEDS: PRAVASTATIN 20 MG TAB PO SCH (21:00)
[2019-06-07] MEDS: ACETAMINOPHEN/CODEINE 300MG - 30MG TAB PO PRN ×2 (00:36→14:10)
[2019-06-07 00:38] VITALS: BP 131/69
[2019-06-07 04:46] VITALS: BP 120/76
[2019-06-07 05:42] LABS: BASOPHILS # (AUTO) 0.1 (0.0-0.1); BASOPHILS % 1.1 % (0.0-1.0); EOSINOPHILS # (AUTO) 0.2 (0.0-0.4); EOSINOPHILS % 2.3 % (0.0-6.0); HEMOGLOBIN 12.1 g/dL (12.0-16.0); LYMPHOCYTES # (AUTO) 2.7 (1.0-3.2); LYMPHOCYTES % 33.4 % (18.0-39.1); MEAN CORPUSCULAR HEMOGLOBIN 28.7 pg (28-32); MEAN CORPUSCULAR HGB CONC 32.7 g/dL (31-35); MEAN CORPUSCULAR VOLUME 87.9 fL (81-99); MONOCYTES # (AUTO) 0.6 (0.2-0.8); MONOCYTES % 7.5 % (4.4-11.3); NEUTROPHILS # (AUTO) 4.5 (2.1-6.9); NEUTROPHILS % 55.5 % (38.7-80.0); PLATELET COUNT 363 x10e3/uL (140-360); RED BLOOD COUNT 4.21 x10e6/uL (3.6-5.1); RED CELL DISTRIBUTION WIDTH 15.6 % (11.7-14.4)
[2019-06-07 05:56] LABS: INR 2.02; PROTHROMBIN TIME 24.3 seconds (11.9-14.5)
[2019-06-07 06:02] LABS: ANION GAP 12.9 mmol/L (8-16); BLOOD UREA NITROGEN 12 mg/dL (7-26); BUN/CREATININE RATIO 19 (6-25); CALCIUM 8.8 mg/dL (8.4-10.2); CARBON DIOXIDE 31 mmol/L (22-29); CHLORIDE 98 mmol/L (98-107); CREATININE, SERUM 0.63 mg/dL (0.57-1.11); EST GLOMERULAR FILTRATION RATE > 60 ML/MIN (60-); GLUCOSE 97 mg/dL (74-118); POTASSIUM 3.9 mmol/L (3.5-5.1); SODIUM 138 mmol/L (136-145)
[2019-06-07] MEDS: LEVOTHYROXINE SODIUM 100 MCG TAB PO SCH (06:13)
--- NOTE | 2019-06-07 06:55 | NUR ---
Patient resting comfortably. Bed-side report given to oncoming nurse regarding patient's status. Call light within reach.
--- NOTE | 2019-06-07 07:00 | NUR ---
BEDSIDE SHIFT REPORT RECEIVED FROM THE WINDOW UNIT AIR CONDITIONING MECHANIC RN. CALL LIGHT WITH IN EASY REACH. INSTRUCTED PT TO USE CALL LIGHT FOR ALL THE NEEDS. EDUCATED PT ABOUT FALL PRECAUTIONS. PT VERBALIZED UNDERSTANDING. BED IS LOW AND LOCKED. SIDE RAILS X2. PT REFUSED BED ALARM. PT DENIES NEEDS AT THIS TIME.
[2019-06-07 08:00] VITALS: BP 135/90
[2019-06-07 08:10] VITALS: BP 135/90
[2019-06-07] MEDS: LOSARTAN POTASSIUM 100 MG TAB PO SCH (09:49)
[2019-06-07] MEDS: SPIRONOLACTONE 25 MG TAB PO SCH (09:50)
[2019-06-07] MEDS: PANTOPRAZOLE SOD 40 MG TABEC PO SCH (09:50)
[2019-06-07] MEDS: ISOSORBIDE MONONITRATE 30 MG TAB CR PO SCH (09:50)
[2019-06-07] MEDS: DULOXETINE HCL 30 MG DELAYED RELEASE PO SCH (09:50)
[2019-06-07] MEDS: CEFTRIAXONE SOD 1 GM/NS 50 ML 50 ML IV SCH (09:53)
[2019-06-07] MEDS: FUROSEMIDE INJ 10 MG/ML 4 ML VIAL IV SCH (09:54)
[2019-06-07] MEDS: MUPIROCIN 2% OINT 22 GM TUBE TOP SCH ×2 (09:57→16:25)
[2019-06-07 12:00] VITALS: BP 135/63
--- NOTE | 2019-06-07 15:00 | NUR ---
INFORMED D/C ORDER TO PT. PT HAS NO ONE AT HOME RIGHT NOW WILL PICK HER BY 5.30 PM.
[2019-06-07 16:01] VITALS: BP 127/59
[2019-06-07] MEDS: WARFARIN SOD 2 MG TAB PO SCH (16:26)
--- NOTE | 2019-06-07 17:30 | NUR ---
PT DISCHARGED HOME SAFELY WITH FAMILY MEMBER. TELEMETRY AND IV REMOVED, TIP INTACT. DRESSING APPLIED. RX GIVEN. DISCHARGE INSTRUCTIONS GIVEN AND PATIENT VERBALIZED UNDERSTANDING. PT ESCORTED VIA WHEEL CHAIR WITH THE TECH TO THE PRIVATE AUTO AT THE FRONT ENTRANCE. PT DENIED FURTHER NEEDS.
--- NOTE | 2019-06-07 19:57 | Discharge Summary ---
I am covering for Dr. Jaci Sullivan. FINAL DISCHARGE DIAGNOSES: 1. Left lower extremity cellulitis-resolved. 2. Acute exacerbation of congestive heart failure with diastolic dysfunction. 3. Chronic lymphedema. 4. Atrial fibrillation. 5. Morbidly obese. 6. Dizziness-resolved. CONSULTANTS: None. PHYSICAL EXAMINATION: VITAL SIGNS: Temperature is 97.3, pulse 74, respiratory rate 16, blood pressure 135/63, and pulse ox 97% on room air. LABORATORY FINDINGS: Show white count was 8.1, hemoglobin 12, hematocrit 37, and platelets of 363. Coagulation; PT 24 and INR 2. Chemistry; sodium 138, potassium 3.9, chloride 98, bicarb 31, anion gap of 12, BUN is 12, creatinine is 0.63, glucose 97, and calcium 8.8. Total bilirubin is 0.5, AST 13, ALT 7, and albumin 3. LDL 57. Troponins were all negative. CK was 98. TSH was 2.382. Urinalysis negative. MICROBIOLOGY: Urine cultures negative. IMAGING STUDIES: Chest x-ray showed some cardiomegaly, bilateral interstitial edema. Shows some airspace opacity as well. A 2D echo shows an EF of 50%. Diastolic dysfunction noted. EKG shows atrial fibrillation, but rate controlled. HOSPITAL COURSE: A 78-year-old female was directly admitted from Dr. Jaci Sullivan's office due to a left lower extremity cellulitis and lower extremity edema due to CHF exacerbation. While here, the patient was on IV antibiotics. Urine cultures were negative. The patient's left lower extremity cellulitis improved. She was on IV diuretics. The patient had significant amount of diuresis with much improved edema. The patient worked with PT and OT. The patient did well throughout the hospital course. She was discharged on oral antibiotics to continue her treatment of her cellulitis. She will continue with same home medications including all diuretics that she taken at home. On discharge, the patient was doing well, back to normal baseline with no other complaints. On the day of discharge, vital signs were stable, labs reviewed and stable. The patient is seen and evaluated and examined thoroughly on the day of discharge. No other complaints. The patient verbalized understanding and agreed to plan of care to follow up as an outpatient with primary care physician in 1 week. MEDICATIONS: See medication reconciliation form. DISPOSITION: Home. CONDITION: Stable. DIET: Heart healthy. In the event of worsening symptoms, the patient was advised to come back to the ED for further evaluation. Discharge summary took greater than 35 minutes. MD IRENE Lind/MICHELLE /[id number]
== END 2019-06-07 17:30 | disposition home or self-care (01) | DRG 602 ==
LOC: ER 17:11 → ERHOLD 19:39 → MED/SURG2 20:23
PROVIDERS: ADMIT Internal Medicine; ATTEND Internal Medicine
DX: L03.115 Cellulitis of right lower limb (principal); I50.43 Acute on chronic combined systolic (congestive) and diastolic (congestive) heart failure; I13.0 Hypertensive heart and chronic kidney disease with heart failure and stage 1 through stage 4 chronic kidney disease, or unspecified chronic kidney disease; Z68.41 Body mass index [BMI] 40.0-44.9, adult; G45.1 Carotid artery syndrome (hemispheric); N18.9 Chronic kidney disease, unspecified; I48.91 Unspecified atrial fibrillation; E66.01 Morbid (severe) obesity due to excess calories; E03.9 Hypothyroidism, unspecified; Z82.49 Family history of ischemic heart disease and other diseases of the circulatory system; L03.116 Cellulitis of left lower limb; J44.9 Chronic obstructive pulmonary disease, unspecified; I73.9 Peripheral vascular disease, unspecified; F32.9 Major depressive disorder, single episode, unspecified; I05.9 Rheumatic mitral valve disease, unspecified; E78.5 Hyperlipidemia, unspecified; D22.9 Melanocytic nevi, unspecified; G56.02 Carpal tunnel syndrome, left upper limb; M47.27 Other spondylosis with radiculopathy, lumbosacral region; N39.41 Urge incontinence; M25.311 Other instability, right shoulder; K29.80 Duodenitis without bleeding; I77.9 Disorder of arteries and arterioles, unspecified; K21.9 Gastro-esophageal reflux disease without esophagitis; K58.9 Irritable bowel syndrome, unspecified; G47.33 Obstructive sleep apnea (adult) (pediatric); N95.2 Postmenopausal atrophic vaginitis; I89.0 Lymphedema, not elsewhere classified; M15.0 Primary generalized (osteo)arthritis
CPT/HCPCS: 36415; 71045; 80048; 80053; 80061; 81001; 82550; 82553; 82948; 84443; 84484; 85025; 85610; 85651; 85730; 87086; 93005; 93306; 97139; 99284; J0696; J1940; J7050

== ENCOUNTER 2020-07-13 15:20 | Emergency (ER) | payer MEDICARE ==
[~2020-07-13] VITALS: Ht 165.1 cm; Wt 113.4 kg
[~2020-07-13 15:20] MED LIST: CEPHALEXIN500 MG PO; DULOXETINE HCL30 MG PO; ISOSORBIDE MONO30 MG PO; LEVOCETIRIZINE D5 MG PO; LEVOTHYROXINE100 MCG PO; LOSARTAN POTASS50 MG PO; METOCLOPRAMIDE10 MG PO; PANTOPRAZOLE SO40 MG PO; PRAVASTATIN SOD80 MG PO; SPIRONOLACTONE50 MG PO; TORSEMIDE10 MG PO; WARFARIN SODIUM4 MG PO; WARFARIN SODIUM5 MG PO
[2020-07-13] MEDS ORDERED: MORPHINE SULFATE INJ 4 MG/ML INJ 1ML IM STA (15:22)
== END 2020-07-13 17:20 | disposition home or self-care (01) ==
LOC: ER 15:35
DX: M25.561 Pain in right knee (principal); I10 Essential (primary) hypertension; I50.9 Heart failure, unspecified; I48.91 Unspecified atrial fibrillation; E03.9 Hypothyroidism, unspecified
CPT/HCPCS: 99283; J2270

== ENCOUNTER 2021-05-22 11:06 | Emergency (ER) | payer MEDICARE ==
[~2021-05-22] VITALS: Ht 165.1 cm; Wt 113.4 kg
== END 2021-05-22 12:21 | disposition home or self-care (01) ==
LOC: ER 11:12
DX: S51.011D Laceration without foreign body of right elbow, subsequent encounter (principal); W18.39XD Other fall on same level, subsequent encounter; I10 Essential (primary) hypertension; E03.9 Hypothyroidism, unspecified; J44.9 Chronic obstructive pulmonary disease, unspecified; I50.9 Heart failure, unspecified; I48.91 Unspecified atrial fibrillation
CPT/HCPCS: 99282